=== PATIENT | male | born 1990 | race Two or more races ===

== ENCOUNTER 2020-03-10 11:19 | Emergency (ER) | payer SELFPAY ==
[~2020-03-10] VITALS: Ht 180.3 cm; Wt 90.7 kg
[2020-03-10] MEDS ORDERED: LEVETIRACETAM (500MG) 1,000 MG in IV NS 0.9% 100 ML IV SCH (11:30)
[2020-03-10] MEDS ORDERED: IV NS 0.9% 1,000 ML IV ONE (11:30)
--- NOTE | 2020-03-10 11:30 | NUR ---
bib witnessed tonic clonic seizure, abrasion to scalp. vs checked. iv access started. seen by
[2020-03-10 13:51] VITALS: BP 139/74
--- NOTE | 2020-03-10 13:52 | NUR ---
Patient discharged to home in stable condition. Written and verbal after care instructions given. Patient verbalizes understanding of instruction. IV removed. Catheter intact and site benign. Pressure and 4x4 applied to site. No bleeding noted.
== END 2020-03-10 13:52 | disposition home or self-care (01) ==
LOC: ER 11:25
DX: S00.01XA Abrasion of scalp, initial encounter (principal); G40.909 Epilepsy, unspecified, not intractable, without status epilepticus; F12.90 Cannabis use, unspecified, uncomplicated; W18.39XA Other fall on same level, initial encounter; Y93.89 Activity, other specified; Y92.89 Other specified places as the place of occurrence of the external cause; Y99.8 Other external cause status
CPT/HCPCS: 96365; 99284; J1953; J7030 ×2